=== PATIENT | female | born 1985 | race Caucasian/White ===

== ENCOUNTER → 2017-06-29 | Outpatient (CLI) | payer OTHER ==
[2017-06-29 20:44] LABS: BASO # 0.1 10^3/uL (0.0-0.2); BASO % 0.7 % (0.0-1.0); EOS # 0.6 10^3/uL (0.0-0.50); EOS % 5.8 % (0.0-3.0); HEMATOCRIT 38.2 % (36.0-47.0); HEMOGLOBIN 12.3 g/dl (12.0-16.0); IMMATURE GRANULOCYTE % 0.3 % (0-3.0); LYMPH # 3.8 10^3/uL (1.5-4.5); LYMPH % 39.4 % (24.0-44.0); MEAN CORPUSCULAR HEMOGLOBIN 31.5 pg (27.0-33.0); MEAN CORPUSCULAR HGB CONC 32.2 g/dl (32.0-36.5); MEAN CORPUSCULAR VOLUME 97.9 fl (80.0-96.0); MONO # 0.5 10^3/uL (0.0-0.8); MONO % 5.6 % (0.0-5.0); NEUTROPHILS # 4.7 10^3/uL (1.8-7.7); NEUTROPHILS % 48.2 % (36.0-66.0); PLATELET COUNT, AUTOMATED 231 10^3/uL (150-450); RED CELL DISTRIBUTION WIDTH 13.3 % (11.5-14.5); WHITE BLOOD COUNT 9.7 10^3/uL (4.0-10.0)
[2017-06-29 20:49] LABS: APPEARANCE, URINE HAZY (CLEAR); BACTERIA, URINE AUTO NEGATIVE (NEGATIVE); BILIRUBIN, URINE AUTO NEGATIVE (NEGATIVE); BLOOD, URINE BLOOD 1+ (NEGATIVE); COLOR, URINE YELLOW (YELLOW); GLUCOSE, URINE (UA) AUTO NEGATIVE (NEGATIVE); KETONE, URINE AUTO NEGATIVE (NEGATIVE); LEUKOCYTE ESTERASE, URINE AUTO TRACE (NEGATIVE); MUCUS, URINE SMALL (NEGATIVE); NITRITE, URINE AUTO NEGATIVE (NEGATIVE); PROTEIN, URINE AUTO NEGATIVE (NEGATIVE); RBC, URINE AUTO 2 /HPF (0-3); SPECIFIC GRAVITY URINE AUTO 1.016 (1.002-1.035); SQUAMOUS EPITHELIAL CELL UR AU 1 /HPF (0-6); WBC, URINE AUTO 1 /HPF (0-3)
== END ==
LOC: M LRY 18:00
DX: R82.90 Unspecified abnormal findings in urine (principal); R79.9 Abnormal finding of blood chemistry, unspecified
CPT/HCPCS: 85027

== ENCOUNTER → 2017-07-27 | Outpatient (REF) | payer OTHER ==
[2017-07-27 19:24] LABS: REASON FOR REVIEW PLATELET MORPHOLOGY; SLIDE REVIEW Report; SOURCE PERIPHERAL SMEAR
[2017-07-29 08:06] LABS: H PYLORI SERUM QUANT IgG ABY 0.19 (0.00-0.79)
== END ==
LOC: M LAB REF 18:20
DX: D69.6 Thrombocytopenia, unspecified (principal)

== ENCOUNTER → 2017-08-07 | Outpatient (CLI) | payer OTHER | LOC: M RAD 07:34 | DX: D69.6 Thrombocytopenia, unspecified (principal) | CPT/HCPCS: 76705 ==

== ENCOUNTER → 2018-04-18 | Outpatient (CLI) | payer OTHER | LOC: M RAD 12:54 | DX: N63.10 Unspecified lump in the right breast, unspecified quadrant (principal) | CPT/HCPCS: 77066 ==

== ENCOUNTER → 2018-10-16 | Outpatient (REF) | payer OTHER ==
[~2018-10-16] MED LIST: ALL10TAB28 PO; CELE10TA PO
== END ==
LOC: M LAB REF 15:22
PROVIDERS: ATTEND Internal Medicine
DX: F41.9 Anxiety disorder, unspecified (principal); Z79.899 Other long term (current) drug therapy

== ENCOUNTER → 2018-12-31 | Outpatient (CLI) | payer OTHER ==
[~2018-12-31] MED LIST changes: +ALBU8.5H INH; -ALL10TAB28 PO; +ALL10TAB29 PO; +AMOX875T2 PO; +CHAN1PAK13 PO; +CITA20TA6 PO; +IBUP200T45 PO; +OMEP-221 PO; +PRED20TA PO; +SERT50TA29 PO; +SUMA50TA2 PO; +ZOLO50TA PO
--- NOTE | 2018-12-31 16:58 | REP ---
BILATERAL BREAST ULTRASOUND: Real-time sonographic evaluation of bilateral breasts were performed in the region of each upper outer quadrant where there are reportedly palpable lumps. Dense fibroglandular tissue is seen in each upper outer quadrant without evidence of a discrete cystic or solid mass IMPRESSION: ACR 2 benign breast ultrasound. No evidence of cystic or solid mass in the upper outer quadrant of each breast. Clinical correlation and followup is recommended. Electronically Signed by Matt Pimentel MD 01/01/2019 11:35 P
== END ==
LOC: M RAD 14:45
PROVIDERS: ATTEND Internal Medicine
DX: N63.20 Unspecified lump in the left breast, unspecified quadrant (principal); N63.10 Unspecified lump in the right breast, unspecified quadrant

== ENCOUNTER → 2019-01-31 | Outpatient (REF) | payer OTHER ==
[~2019-01-31] MED LIST changes: -ALBU8.5H INH; -AMOX875T2 PO; -CITA20TA6 PO; -IBUP200T45 PO; -OMEP-221 PO; -PRED20TA PO; -SERT50TA29 PO; -SUMA50TA2 PO; -ZOLO50TA PO
== END ==
LOC: M SFHCLERA 18:35
PROVIDERS: ATTEND Nurse Practitioner Family
DX: R53.81 Other malaise (principal)

== ENCOUNTER → 2019-01-31 | Outpatient (CLI) | payer OTHER ==
[~2019-01-31] MED LIST changes: +ALBU8.5H INH; +AMOX875T2 PO; +CITA20TA6 PO; +IBUP200T45 PO; +OMEP-221 PO; +PRED20TA PO; +SERT50TA29 PO; +SUMA50TA2 PO; +ZOLO50TA PO
--- NOTE | 2019-01-31 13:07 | REP ---
CHEST, TWO VIEWS: No comparisons. Two views of the chest are performed. In the left apical region there is a somewhat nodular opacity 9 mm in diameter. No other abnormal parenchymal opacities are seen bilaterally. The heart is normal in size. The mediastinal silhouette is normal. The visualized osseous structures are intact. IMPRESSION: Focal 9 mm nodular opacity in the left apex may be artifactual. Nodular parenchymal opacity is not completely excluded. Recommend followup chest CT or followup chest radiographs. Electronically Signed by Matt Pimentel MD 01/31/2019 01:37 P
== END ==
LOC: M LRY 12:07
PROVIDERS: ATTEND Nurse Practitioner Family
DX: R91.8 Other nonspecific abnormal finding of lung field (principal)

== ENCOUNTER 2019-04-19 08:45 | Day surgery (SDC) | payer OTHER ==
[~2019-04-19] VITALS: Ht 162.6 cm; Wt 54.0 kg
[~2019-04-19 08:45] MED LIST changes: -AMOX875T2 PO; -IBUP200T45 PO; +LIDOCAINE 2% INJ 100 MG/5 ML SDV (FOR ANES.) As Ordered ONE; +NS 1,000 ML IV SCH; -PRED20TA PO; +PROPOFOL 200 MG/20 ML VIAL As Ordered ONE; -ZOLO50TA PO; +fentaNYL 100 MCG/2 ML INJECTION (J3010) As Ordered ONE
[2019-04-19] MEDS ORDERED: IBUP200T45 PO (09:03)
[2019-04-19] MEDS ORDERED: ONDANSETRON 4MG/2ML VIAL (J2405) As Ordered ONE (09:56)
--- NOTE | 2019-04-19 10:00 | ROOR ---
Patient Name: Kirstin Medina Procedure Date: 04/19/2019 9:38 AM Date of : 1985 Age: 33 Room: [facility] Gender: Female Note Status: Finalized Procedure: Upper Endoscopy + Biopsies Indications: Heartburn, Exclusion of Merchant's esophagus Providers: Deepak Herrera MD Referring MD: Brenda ROMERO MD Requesting Provider: Medicines: Monitored Anesthesia Care Complications: No immediate complications. Procedure: Pre-Anesthesia Assessment: - The heart rate, respiratory rate, oxygen saturations, blood pressure, adequacy of pulmonary ventilation, and response to care were monitored throughout the procedure. The Endoscope was introduced through the mouth, and advanced to the second part of duodenum. The upper GI endoscopy was accomplished without difficulty. The patient tolerated the procedure well. Findings: The Z-line was variable and was found 40 cm from the incisors. Multiple biopsies were obtained with cold forceps for evaluation to rule out Merchant's Esophagus randomly at the gastroesophageal junction. No other significant abnormalities were identified in a careful examination of the stomach. The exam of the duodenum was otherwise normal. Impression: - Z-line variable, 40 cm from the incisors. - Multiple biopsies were obtained at the gastroesophageal junction. - The examination was otherwise normal. Recommendation: - Patient has a contact number available for emergencies. The signs and symptoms of potential delayed complications were discussed with the patient. Return to normal activities tomorrow. Written discharge instructions were provided to the patient. - High fiber diet. - Discharge patient to home. - Follow an antireflux regimen. - Continue present medications. - Await pathology results. - Telephone GI clinic for pathology results in 1 week. - Return to referring physician. - The findings and recommendations were discussed with the patient's family. Deepak Herrera MD Deepak Herrera MD 04/19/2019 10:00:16 AM Electronically signed by Deepak Herrera MD Number of Addenda: 0 Note Initiated On: 04/19/2019 9:38 AM Estimated Blood Loss: Estimated blood loss: none.
[2019-04-19 10:20] VITALS: BP 116/69
== END 2019-04-19 10:29 | disposition home or self-care (01) ==
LOC: M OPP 08:45
PROVIDERS: ATTEND Internal Medicine Gastroenterology
DX: K22.8 Other specified diseases of esophagus (principal); R12 Heartburn; K21.9 Gastro-esophageal reflux disease without esophagitis; F17.210 Nicotine dependence, cigarettes, uncomplicated; Z79.899 Other long term (current) drug therapy; Z88.1 Allergy status to other antibiotic agents; Z88.2 Allergy status to sulfonamides; Z88.3 Allergy status to other anti-infective agents; Z88.8 Allergy status to other drugs, medicaments and biological substances
CPT/HCPCS: 43239; 88305; J2405; J3010

== ENCOUNTER 2021-08-30 13:05 | Emergency (ER) | payer OTHER ==
[~2021-08-30] VITALS: Ht 167.6 cm; Wt 56.9 kg
[~2021-08-30 13:05] MED LIST changes: -ALL10TAB29 PO; +AMOX875T2 PO; +CETI-24 PO; +EMGA120I SC; +IBUP200T46 PO; +LEXA1TAB PO; -LIDOCAINE 2% INJ 100 MG/5 ML SDV (FOR ANES.) As Ordered ONE; -NS 1,000 ML IV SCH; -OMEP-221 PO; +OMEP40CA5 PO; +PRED20TA PO; -PROPOFOL 200 MG/20 ML VIAL As Ordered ONE; +ZOLO50TA PO; -fentaNYL 100 MCG/2 ML INJECTION (J3010) As Ordered ONE
[2021-08-30] MEDS ORDERED: POLYVINYL ALCOHOL OPHTH SOLN 15 ML(LIQUITEARS) OS PRN (14:20)
[2021-08-30 14:28] LABS: HEMATOCRIT 41.4 % (36.0-47.0); HEMOGLOBIN 13.5 g/dl (12.0-15.5); RED BLOOD COUNT 4.26 10^6/uL (4.00-5.40); WHITE BLOOD COUNT 6.8 10^3/uL (4.0-10.0)
[2021-08-30 14:29] LABS: BASO # 0.1 10^3/uL (0.0-0.2); BASO % 0.9 % (0.0-1.0); EOS # 0.2 10^3/uL (0.0-0.5); EOS % 2.6 % (0.0-3.0); LYMPH % 44.4 % (24.0-44.0); MEAN CORPUSCULAR HEMOGLOBIN 31.7 pg (27.0-33.0); MEAN CORPUSCULAR HGB CONC 32.6 g/dl (32.0-36.5); MEAN CORPUSCULAR VOLUME 97.2 fl (80.0-96.0); MONO # 0.4 10^3/uL (0.0-0.8); MONO % 6.5 % (2.0-8.0); NEUTROPHILS # 3.1 10^3/uL (1.5-8.5); NEUTROPHILS % 45.3 % (36.0-66.0); PLATELET COUNT, AUTOMATED 157 10^3/uL (150-450)
[2021-08-30] MEDS ORDERED: VALA1TAB5 PO (16:42)
[2021-08-30] MEDS ORDERED: PRED20TA PO (16:42)
[2021-08-30] MEDS ORDERED: BACIOIN23 OP (16:43)
[2021-08-30 16:45] VITALS: BP 106/74
== END 2021-08-30 17:05 | disposition home or self-care (01) ==
LOC: M ED 13:05
DX: G51.0 Bell's palsy (principal); D69.3 Immune thrombocytopenic purpura; Z79.899 Other long term (current) drug therapy; Z88.1 Allergy status to other antibiotic agents; Z88.2 Allergy status to sulfonamides; Z88.8 Allergy status to other drugs, medicaments and biological substances; F17.210 Nicotine dependence, cigarettes, uncomplicated

== ENCOUNTER → 2021-11-03 | Outpatient (CLI) | payer OTHER ==
[~2021-11-03] MED LIST changes: +BACIOIN23 OP; +VALA1TAB5 PO
== END ==
LOC: M WUC 09:51
PROVIDERS: ATTEND Student in an Organized Health Care Education/Training Program
DX: M25.572 Pain in left ankle and joints of left foot (principal)

== ENCOUNTER → 2025-02-13 | Outpatient (REF) | payer OTHER ==
[~2025-02-13] MED LIST changes: +RIME75TA
[2025-02-13 16:20] LABS: PLATELET COUNT, AUTOMATED 171 10^3/uL (150-450)
[2025-02-13 16:25] LABS: ESTIMATED AVERAGE GLUCOSE 108.0 MG/DL (60-110)
[2025-02-13 16:42] LABS: ALT/SGPT 13 U/L (7.0-40); AST/SGOT 17 U/L (<34); CALCIUM LEVEL 9.2 MG/DL (8.5-10.1); CARBON DIOXIDE LEVEL 28 MMOL/L (20-31); CHLORIDE LEVEL 107 MMOL/L (98-107); CHOLESTEROL LEVEL 189 MG/DL (<200); CHOLESTEROL RISK RATIO 3.24 (<5); CREATININE FOR GFR 0.74 MG/DL (0.55-1.30); GLOMERULAR FILTRATION RATE > 90.0 (>60); IRON (FE) 68 UG/DL (50-170); LDL CHOLESTEROL 113.4 MG/DL (<100); NON-HDL-C 130.8 MG/DL; POTASSIUM SERUM 3.7 MMOL/L (3.5-5.1); SODIUM LEVEL 143 MMOL/L (136-145); TRIGLYCERIDES LEVEL 87 MG/DL (<150); VITAMIN B12 LEVEL 474 PG/ML (211-911)
[2025-02-13 16:43] LABS: LUTEINIZING HORMONE 16.2 mIU/ML
[2025-02-13 16:44] LABS: ESTRADIOL 81.7 PG/ML; FREE T4 1.15 NG/DL (0.89-1.76)
== END ==
LOC: M LAB REF 15:40
PROVIDERS: ATTEND Internal Medicine
DX: D69.6 Thrombocytopenia, unspecified (principal); Z79.899 Other long term (current) drug therapy; L65.9 Nonscarring hair loss, unspecified

== ENCOUNTER 2025-02-28 10:03 | Emergency (ER) | payer OTHER ==
[~2025-02-28] VITALS: Ht 165.1 cm; Wt 56.2 kg
[2025-02-28] MEDS ORDERED: ATIV1TAB10 PO (10:45)
[2025-02-28 12:18] LABS: KETONE, URINE AUTO RFX NEGATIVE (NEGATIVE); LEUKOCYTE ESTERASE UR AUTO RFX NEGATIVE (NEGATIVE); NITRITE, URINE AUTO RFX NEGATIVE (NEGATIVE); RBC, URINE AUTO RFX 0 /HPF (0-3); SQUAM EPITHELIAL CELL UR AURFX 0 /HPF (0-6); WBC, URINE AUTO RFX 0 /HPF (0-3)
[2025-02-28 12:31] VITALS: BP 109/79; TEMP 96.7; O2SAT 100
[2025-02-28 14:28] LABS: URINE PREG TEST NEGATIVE (NEGATIVE)
== END 2025-02-28 13:25 | disposition left against medical advice (07) ==
LOC: M ED 10:03
DX: Z53.21 Procedure and treatment not carried out due to patient leaving prior to being seen by health care provider (principal)